=== PATIENT | male | born 1960 | race Caucasian/White ===

== ENCOUNTER → 2017-11-30 01:14 | Outpatient (CLI) | payer OTHER, SELFPAY ==
[2017-12-04 17:29] LABS: CLASS 0; Cheese American IgE <0.35 kU/L (<0.35)
[2017-12-06 14:59] LABS: Food Panel #2, IgE <0.35 kU/L; Pineapple, IgE <0.35 kU/L; Tuna IgE <0.35 kU/L
== END ==
PROVIDERS: PCP Nurse Practitioner Family; Visit Provider Physician Assistant
DX: J31.0 Chronic rhinitis (principal); L30.9 Dermatitis, unspecified; R09.82 Postnasal drip
CPT/HCPCS: 36415; 86003; 84443

== ENCOUNTER 2018-09-23 06:36 | Emergency (ER) | payer OTHER, SELFPAY ==
[2018-09-23] VITALS (18 sets, daily range): BP systolic 119–138; BP diastolic 71–89; PULSE 53–79; RESP 20; TEMP 36.7; O2SAT 94–96
--- NOTE | 2018-09-23 06:45 | W.ED.GENAD ---
Discharge Plan Disposition Patient Disposition: HOME Condition: Improving Discharge Details Chief Complaint: Allergic Clinical Impression: Allergic reaction Primary Care Provider: Alisha Mallory ED Provider: Armin Howe Home Meds and New Rx's Prescriptions: New prednisone 20 mg tablet 40 mg PO DAILY 3 Days Qty: 6 RF: 0 Continued fexofenadine [Cristina Allergy] 180 mg Tablet 360 mg PO BID RF: 0 ranitidine HCl [Zantac] 150 mg Tablet 150 mg PO BID RF: 0 Discharge Instructions Instructions: General Allergic Reaction (ED) Additional Instructions: Continue your regular medications including Cristina and Zantac. Prednisone as prescribed for 3 days time. Return for any acute concerns Medical Decision Making 58-year-old male with a history of food allergies, states that after eating some fruit he began to develop uvular swelling and sensation of mild difficulty swallowing. He does take antihistamines daily but had not taken them today. He has not had a rash or shortness of breath. He arrives with unremarkable vital signs and a mild to moderately edematous uvula. IV placed, patient given parenteral steroids, ranitidine, Benadryl and small fluid bolus. Observed with improvement. Likely secondary to food allergen. Will place on 3 days low dose prednisone to prevent recrudescence of symptoms. HPI General Mode of arrival: EMS. Date/Time Provider Initiated Documentation: 09/23/18 06:40. Limitations to Documentation: no limitations. Information obtained by: EMS. History of Present Illness 58 year old M presents to the emergency department with the chief complaint of Allergic reaction, described as moderate and similar to prior episodes, Quality is described as constant, and is localized to the mouth. Patient reports no radiation. Patient started experiencing this minute(s) and it has been constant. No relieving factors improve symptom(s), No exacerbating factors reported . Patient notes denies shortness of breath. Patient did receive the following treatments prior to arrival, none Related Data Home Medications Medication Instructions Recorded Confirmed fexofenadine [Cristina Allergy] 360 mg PO BID 09/23/18 09/23/18 prednisone 40 mg PO DAILY 3 Days #6 tab 09/23/18 ranitidine HCl [Zantac] 150 mg PO BID 09/23/18 09/23/18 Previous Rx's Medication Instructions Recorded prednisone 40 mg PO DAILY 3 Days #6 tab 09/23/18 Allergies Allergy/AdvReac Type Severity Reaction Status Date / Time fresh fruit Allergy Severe Swelling/Ed Uncoded 09/23/18 06:48 reji Review of Systems Review of Systems No difficulty breathing, no change to swallowing, no drooling. 6 systems reviewed and otherwise negative [facility] Social History Smoking/Tobacco Use Status: Never Alcohol Intake: current Substance use type: does not use Do you feel safe at home: Yes Do you feel safe in your relationship?: Yes Exam Narrative Exam Narrative: GEN: awake, alert, oriented 3. Pleasant, well groomed, interactive. HEAD: Normocephalic, atraumatic ENT: Mucous membranes moist, oropharynx with swollen and edematous midline uvula., External ear exam unremarkable EYES: PERRL, EOMI NECK: Full ROM, no SHARONDA, no menigismus CHEST/RESP: Nontender, clear to auscultation bilateral, no wheeze/rhonchi/rales CARDIOVASCULAR: RRR, no murmur, rub jax. 2+ Rad pulse bilateral ABDOMEN: Soft, nontender, no mass. +Bowel sounds EXT: Full ROM, no edema, no rash Neuro: Grossly normal neurologic exam, conversant, interactive. Psych: Speech fluent, thoughts congruent, affect normal
--- NOTE | 2018-09-23 06:48 | ED.GENADUL_ITS ---
Discharge Plan Disposition Patient Disposition: HOME Condition: Improving Discharge Details Chief Complaint: Allergic Clinical Impression: Allergic reaction Primary Care Provider: Alisha Mallory ED Provider: Armin Howe Home Meds and New Rx's Prescriptions: New prednisone 20 mg tablet 40 mg PO DAILY 3 Days Qty: 6 RF: 0 Continued fexofenadine [Cristina Allergy] 180 mg Tablet 360 mg PO BID RF: 0 ranitidine HCl [Zantac] 150 mg Tablet 150 mg PO BID RF: 0 Discharge Instructions Instructions: General Allergic Reaction (ED) Additional Instructions: Continue your regular medications including Cristina and Zantac. Prednisone as prescribed for 3 days time. Return for any acute concerns Medical Decision Making 58-year-old male with a history of food allergies, states that after eating some fruit he began to develop uvular swelling and sensation of mild difficulty swallowing. He does take antihistamines daily but had not taken them today. He has not had a rash or shortness of breath. He arrives with unremarkable vital signs and a mild to moderately edematous uvula. IV placed, patient given parenteral steroids, ranitidine, Benadryl and small fluid bolus. Observed with improvement. Likely secondary to food allergen. Will place on 3 days low dose prednisone to prevent recrudescence of symptoms. HPI General Mode of arrival: EMS . Date/Time Provider Initiated Documentation: 09/23/18 06:40 . Limitations to Documentation: no limitations . Information obtained by: EMS . History of Present Illness 58 year old M presents to the emergency department with the chief complaint of Allergic reaction, described as moderate and similar to prior episodes, Quality is described as constant, and is localized to the mouth. Patient reports no radiation. Patient started experiencing this minute(s) and it has been constant. No relieving factors improve symptom(s), No exacerbating factors reported . Patient notes denies shortness of breath. Patient did receive the following treatments prior to arrival, none Related Data Home Medications Medication Instructions Recorded Confirmed fexofenadine [Cristina Allergy] 360 mg PO BID 09/23/18 09/23/18 prednisone 40 mg PO DAILY 3 Days #6 tab 09/23/18 ranitidine HCl [Zantac] 150 mg PO BID 09/23/18 09/23/18 Previous Rx's Medication Instructions Recorded prednisone 40 mg PO DAILY 3 Days #6 tab 09/23/18 Allergies Allergy/AdvReac Type Severity Reaction Status Date / Time fresh fruit Allergy Severe Swelling/Ed Uncoded 09/23/18 06:48 reji Review of Systems Review of Systems No difficulty breathing, no change to swallowing, no drooling. 6 systems reviewed and otherwise negative [facility] Social History Smoking/Tobacco Use Status: Never Alcohol Intake: current Substance use type: does not use Do you feel safe at home: Yes Do you feel safe in your relationship?: Yes Exam Narrative Exam Narrative: GEN: awake, alert, oriented 3. Pleasant, well groomed, interactive. HEAD: Normocephalic, atraumatic ENT: Mucous membranes moist, oropharynx with swollen and edematous midline uvula., External ear exam unremarkable EYES: PERRL, EOMI NECK: Full ROM, no SHARONDA, no menigismus CHEST/RESP: Nontender, clear to auscultation bilateral, no wheeze/rhonchi/rales CARDIOVASCULAR: RRR, no murmur, rub jax. 2+ Rad pulse bilateral ABDOMEN: Soft, nontender, no mass. +Bowel sounds EXT: Full ROM, no edema, no rash Neuro: Grossly normal neurologic exam, conversant, interactive. Psych: Speech fluent, thoughts congruent, affect normal
[2018-09-23] MEDS: methylPREDNISolone SUCC 125 MG VIAL IVP (07:10)
[2018-09-23] MEDS: diphenhydrAMINE 50 MG/ML VIAL IVP (07:15)
[2018-09-23] MEDS: Normal Saline 50 ML 200 ML (07:18)
[2018-09-23] MEDS: Normal Saline 500 ML IV (07:23)
== END 2018-09-23 09:20 | disposition home or self-care (01) ==
PROVIDERS: Emergency Provider Emergency Medicine; PCP Family Medicine
DX: R13.10 Dysphagia, unspecified (principal); T62.8X1A Toxic effect of other specified noxious substances eaten as food, accidental (unintentional), initial encounter; R60.0 Localized edema; Z91.018 Allergy to other foods
CPT/HCPCS: 36415; 96361; 96374; 96375; 99284; J1200; J2930

== ENCOUNTER 2020-01-31 04:22 | Outpatient (CLI) | payer BC, SELFPAY ==
[2020-02-01 20:39] LABS: COVID-19 RT-PCR Result NEGATIVE (Negative)
== END 2020-01-31 04:42 ==
PROVIDERS: PCP Family Medicine; Visit Provider Family Medicine
DX: Z20.828 Contact with and (suspected) exposure to other viral communicable diseases (principal)
CPT/HCPCS: U0003

== ENCOUNTER 2020-04-14 00:51 | Outpatient (CLI) | payer BC, SELFPAY ==
--- NOTE | 2020-04-14 08:21 | DI.RAD_ITS ---
EXAM: XR FOOT RT COMPLETE CLINICAL HISTORY: JAMES STAPLES BUNION OF FEET, M21.621. TECHNIQUE: 2D digital imaging was performed. COMPARISON: CR XR FOOT LT COMPLETE from 04/14/2020 FINDINGS: BONES: No acute fracture is present. No bony destructive lesion is seen. The 5th metatarsal head has slightly shifted outward. There may be mild increased soft tissue lateral to the head of the 5th me tatarsal. JOINTS: No dislocation is present. Mild degenerative changes are seen in the foot particularly at th e 1st MTP joint. SOFT TISSUE: Please see above. IMPRESSION: Slight outward shift of the 5th metatarsal head. Mild increase in the overlying soft tissues. DATA REPOSITORY: RADIATION DOSE DELIVERED:
--- NOTE | 2020-04-14 08:21 | DI.RAD_ITS ---
EXAM: XR FOOT LT COMPLETE CLINICAL HISTORY: JAMES STAPLES BUNION OF FEET, M21.621. TECHNIQUE: 2D digital imaging was performed. COMPARISON: No exams were available for comparison FINDINGS: BONES: No acute fracture is present. No bony destructive lesion is seen. No significant osseous hyper trophy of the 5th metatarsal is noted. JOINTS: No dislocation present. The joint spaces are well maintained. SOFT TISSUE: There might be mild soft tissue thickening along the lateral aspect of the foot at the 5 th MTP joint. IMPRESSION: Possible mild soft tissue thickening along the lateral aspect of the foot at the 5th MTP joint. DATA REPOSITORY: RADIATION DOSE DELIVERED:
== END 2020-04-14 01:11 ==
PROVIDERS: PCP Family Medicine; Visit Provider Podiatrist Foot Surgery
DX: M79.89 Other specified soft tissue disorders (principal); M21.621 Bunionette of right foot; M21.622 Bunionette of left foot
CPT/HCPCS: 73630

== ENCOUNTER 2020-06-01 01:43 | Outpatient (CLI) | payer BC, SELFPAY ==
--- NOTE | 2020-06-01 06:30 | DI.US_ITS ---
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 TECHNIQUE: Ultrasound was performed using standard protocol. COMPARISON: No exams were available for comparison FINDINGS: Sonographic assessment utilizing grayscale and color Doppler imaging was performed and targeted to th e area of clinical concern. There is a question of a small fat containing right inguinal hernia. The neck of the hernia measures approximately [address] scan of the pelvis may be considered for further evaluation. IMPRESSION: DATA REPOSITORY:
== END 2020-06-01 02:03 ==
PROVIDERS: PCP Family Medicine; Visit Provider Surgery
DX: R10.31 Right lower quadrant pain (principal)
CPT/HCPCS: 76857

== ENCOUNTER 2020-06-25 12:59 | Emergency (ER) | payer BC, SELFPAY ==
[2020-06-25] VITALS (7 sets, daily range): BP systolic 118–145; BP diastolic 74–89; PULSE 58–70; RESP 14–18; TEMP 36.2–36.6; O2SAT 95–97
--- NOTE | 2020-06-25 13:30 | DI.US_ITS ---
EXAM: US SCROTUM CLINICAL HISTORY: scrotal pain TECHNIQUE: Ultrasound of the testes performed using grayscale, color, and Doppler imaging. COMPARISON: US US HERNIA from 06/01/2020 FINDINGS: RIGHT HEMISCROTUM: The right testicle exhibits normal size and echo architecture with no evidence of intratesticular mas s. Vascular flow was demonstrated within the right testicle, including arterial waveforms. Single tiny calcification noted in the right testicle measuring 1 millimeter. The epididymis appears unremarkable. There are no epididymal head cysts. There is small ipsilateral hydrocele. LEFT HEMISCROTUM: The left testicle exhibits normal size and echo architecture with no evidence of intratesticular mass . Vascular flow is demonstrated within the left testicle, including arterial waveforms. Small left-sided hydrocele. The epididymis appears unremarkable. There are no epididymal head cysts. Small varicocele noted. Also 2 adjacent 2 millimeter calcification which are x-rays testicular and a lso appendix epididymis noted. IMPRESSION: 1. No evidence of testicular mass nor testicular torsion. 2. Small bilateral hydroceles 3. Left-sided varicocele (small-moderate) Other findings as above. DATA REPOSITORY:
--- NOTE | 2020-06-25 13:37 | W.ED.GENAD ---
Discharge Plan Disposition Patient Disposition: HOME Condition: Good Discharge Details Clinical Impression: Right groin pain Primary Care Provider: Alisha Mallory ED Provider: Rohini Mauro Home Meds and New Rx's Prescriptions: No Action triamcinolone acetonide 0.1 % cream 1 applic topical BID RF: 0 fluticasone propionate 50 mcg/actuation spray,suspension 2 spray intranasal DAILY RF: 0 betamethasone dipropionate 0.05 % ointment 1 applic topical BID RF: 0 aspirin [Adult Aspirin Regimen] 81 mg tablet,delayed release (DR/EC) 81 mg PO DAILY RF: 0 lorazepam 1 mg tablet 1 mg PO QHS PRNRF: 0 zolpidem [Ambien] 10 mg tablet 10 mg PO QHS PRNRF: 0 olopatadine 0.1 % drops 1 drp ophthalmic (eye) BID RF: 0 epinephrine [EpiPen] 0.3 mg/0.3 mL auto-injector 0.3 mg IM ONCE RF: 0 oxycodone 5 mg tablet 5 mg PO Q6H PRNQty: 14 RF: 0 Discharge Instructions Additional Instructions: Take ibuprofen 600 mg. Take Tylenol 650 mg every 4-6 hours as needed breakthrough pain No lifting more than 10 pounds Follow-up with surgeon at your scheduled appointment and return earlier should you have new or worsening complaints including a hernia that not reproducible, fever, chills Try not to strain with bowel movement Discharge Data Discharge Date/Time-TO BE ENTERED AT DEPARTURE: 06/25/20 18:55 Medical Decision Making <Ricardo Esposito MD - Last Filed: 07/03/20 20:44> 1600??59-year-old male with history of right inguinal hernia, scheduled for inguinal hernia repair next week, here with worsening testicular pain over the past 4-5 days, tender testicles right greater than left with no inflammatory changes, no palpable hernia. Ultrasound of the scrotum was obtained and interpreted by radiology: Good blood flow, no torsion. See report regarding additional findings. Plan to obtain CT of the abdomen pelvis to assess for incarcerated hernia. Imaging Data Radiologic Study: Imaging: Ultrasound (Scrotum) Radiologist's impression: FINDINGS: RIGHT HEMISCROTUM: The right testicle exhibits normal size and echo architecture with no evidence of intratesticular mass. Vascular flow was demonstrated within the right testicle, including arterial waveforms. Single tiny calcification noted in the right testicle measuring 1 millimeter. The epididymis appears unremarkable. There are no epididymal head cysts. There is small ipsilateral hydrocele. LEFT HEMISCROTUM: The left testicle exhibits normal size and echo architecture with no evidence of intratesticular mass. Vascular flow is demonstrated within the left testicle, including arterial waveforms. Small left-sided hydrocele. The epididymis appears unremarkable. There are no epididymal head cysts. Small varicocele noted. Also 2 adjacent 2 millimeter calcification which are x-rays testicular and also appendix epididymis noted. IMPRESSION: 1. No evidence of testicular mass nor testicular torsion. 2. Small bilateral hydroceles 3. Left-sided varicocele (small-moderate) Lab Data Lab results reviewed: Yes I reviewed the patient's lab results. Labs: Laboratory Tests Range/Units 06/25/20 06/25/20 06/25/20 14:15 14:15 14:28 WBC (4.4-10.8) 10^3/uL 6.00 RBC (4.36-5.78) 10^6/uL 4.59 Hgb (13.5-17.5) g/dL 14.4 Hct (40.0-50.0) % 43.6 MCV (80-95) fL 95.0 MCH (27.0-33.0) pg 31.4 MCHC (32.0-36.0) % 33.0 RDW (11.8-14.1) % 13.2 Plt Count (130-400) 10^3/uL 226 MPV (8.0-11.0) fL 11.2 H Immature Gran % 1.2 Neutrophils % 62.2 Lymphocytes % 20.3 Monocytes % 9.3 Eosinophils % 6.2 Basophils % 0.8 Nucleated RBC % % 0 Absolute Neutrophils (1.2-6.7) 10^3/uL 3.73 Absolute Lymphocytes (1.2-3.4) 10^3/uL 1.22 Absolute Monocytes (0.1-0.8) 10^3/uL 0.56 Absolute Eosinophils (0.0-0.7) 10^3/uL 0.37 Absolute Basophils (0.0-0.2) 10^3/uL 0.05 Sodium (136-145) mmol/L 138 Potassium (3.5-5.1) mmol/L 4.2 Chloride (98-107) mmol/L 105 Carbon Dioxide (21.0-32.0) mmol/L 27.4 Anion Gap (3-11) mmol/L 5.6 BUN (7-18) mg/dL 16 Creatinine (0.70-1.30) mg/dL 0.9 Estimated GFR/1.73 m2 (mL/min/1.73m2) >= 60.00 Glucose (74-106) mg/dL 95 Calcium (8.5-10.1) mg/dL 8.7 Total Bilirubin (0.2-1.0) mg/dL 0.3 AST (15-37) U/L 24 ALT (16-63) U/L 41 Alkaline Phosphatase (46-116) U/L 86 Total Protein (6.4-8.2) g/dL 6.9 Albumin (3.4-5.0) g/dL 3.7 Lipase (73-393) U/L 164 Urine Color (Yellow) Yellow Urine Clarity (Clear) Clear Urine pH (5-8) 6.0 Ur Specific [place] (1.005-1.025) 1.025 Urine Protein (Negative) mg/dL Negative Urine Ketones (Negative) mg/dL Negative Urine Blood (Negative) Negative Urine Nitrite (Negative) Negative Urine Bilirubin (Negative) Negative Urine Urobilinogen (Up TO 0.2) EU/dL 0.2 Ur Leukocyte Esterase (Negative) Negative Urine Glucose (Negative) mg/dL Negative <HERMILA Moscoso - Last Filed: 06/25/20 18:41> CT results reviewed with patient, possible evidence of gastroenteritis, however pt does not have any tenderness in his epigastrium, plan is for him to follow-up with surgery as directed and to take ibuprofen and Tylenol for discomfort Early return precautions discussed and patient expressed understanding, discussed to restrain from heavy lifting, repetitive motion Discharged home in stable condition with stable vital HPI <Ricardo Esposito MD - Last Filed: 07/03/20 20:44> General Mode of arrival: ambulatory. Date/Time Provider Initiated Documentation: 06/25/20 13:30. Limitations to Documentation: no limitations. Information obtained by: patient. HPI Narrative: 59-year-old male with history of adenomatous polyp of the colon, right inguinal hernia repair in the past, here with complaint of testicular pain. Patient notes testicular pain persistent and severe over the past few days. Pain currently moderate. No modifiers. No associated dysuria or fever. He has not noticed any scrotal swelling. He has known inguinal hernia and is scheduled for repair next week. Patient called surgical office and advised him come to the emerge department for likely ultrasound and assessment. Related Data Home Medications Medication Instructions Recorded Confirmed aspirin 81 mg tablet,delayed 81 mg PO DAILY 05/14/20 07/01/20 release betamethasone dipropionate 0.05 % 1 applic TOPICAL BID 05/14/20 07/01/20 topical ointment epinephrine 0.3 mg/0.3 mL 0.3 mg IM ONCE 05/14/20 06/30/20 injection, auto-injector fluticasone propionate 50 2 spray INTRANASAL DAILY 05/14/20 07/01/20 mcg/actuation nasal spray,suspension lorazepam 1 mg tablet 1 mg PO QHS PRN 05/14/20 07/01/20 olopatadine 0.1 % eye drops 1 drp OPHTHALMIC (EYE) BID 05/14/20 07/01/20 triamcinolone acetonide 0.1 % 1 applic TOPICAL BID 05/14/20 07/01/20 topical cream zolpidem 10 mg tablet 10 mg PO QHS PRN 05/14/20 07/01/20 oxycodone 5 mg PO Q6H PRN #14 tab 07/01/20 Previous Rx's Medication Instructions Recorded oxycodone 5 mg PO Q6H PRN #14 tab 07/01/20 Allergies Allergy/AdvReac Type Severity Reaction Status Date / Time hydromorphone [From Dilaudid] AdvReac Intermediate Nausea Unverified 07/01/20 08:46 fresh fruit Allergy Severe Swelling/Ed Uncoded 07/01/20 08:46 reji General Stated Complaint: Abd Prob PRAFUL: 3 Review of Systems <Ricardo Esposito MD - Last Filed: 07/03/20 20:44> All systems reviewed & are unremarkable except as noted in HPI and below Constitutional Constitutional: Denies fever(s) Genitourinary Genitourinary: Reports as per HPI PFSH <Ricardo Esposito MD - Last Filed: 07/03/20 20:44> Medical History Anxiety Dermatographic urticaria History of adenomatous polyp of colon Insomnia Sleep apnea Surgical History (Updated 07/01/20 @ 08:45 by Karla Turner RN) History of repair of ACL R knee Hx of right inguinal hernia repair Hx of shoulder surgery L shoulder S/P colonoscopy S/P right knee arthroscopy L knee Social History Smoking/Tobacco Use Status: Never Smoking risk assessment performed?: Yes Alcohol Intake: never Drug use: Never Substance use type: does not use Current gender identity: male Do you feel safe at home: Yes Do you feel safe in your relationship?: Yes Exam <Ricardo Esposito MD - Last Filed: 07/03/20 20:44> Const General: cooperative and no acute distress HENMT Mouth: moist mucous membranes Eyes Conjunctivae: normal conjunctivae Sclera: normal sclerae Resp Auscultation: clear to auscultation bilaterally, no rales, no rhonchi and no wheezes Cardio Rate: regular rate and not tachycardic Rhythm: regular rhythm GI Palpation: soft, not firm, no guarding, no masses and not rigid Male General Exam: No erythema, No hernia, No inguinal lymphadenopathy and Yes tenderness (Right greater than left testicle) Penis: normal penis Meatus: meatus normal Scrotum: not erythematous, no inguinal hernias and no scrotal swelling Other: Recommended medical officer psychiatry and patient declined Skin General skin exam: no rashes or lesions noted Neuro General: patient alert, patient awake and tone normal Extrem General: no edema Psych Appearance: grossly normal Mental Status: mental status grossly normal Course <Ricardo Esposito MD - Last Filed: 07/03/20 20:44> Vital Signs Vital signs: Vital Signs Temperature 36.3 C L 06/25/20 13:21 Pulse 70 06/25/20 13:21 Respiratory Rate 16 06/25/20 13:21 Blood Pressure 145/81 H 06/25/20 13:21 Pulse Oximetry 95 06/25/20 13:21 Temperature 36.3 C L 06/25/20 13:21 Temperature Source Skin 06/25/20 13:21 Pulse 70 06/25/20 13:21 Respiratory Rate 16 06/25/20 13:21 Blood Pressure 145/81 H 06/25/20 13:21 Blood Pressure Position Sitting 06/25/20 13:21 Pulse Oximetry 95 06/25/20 13:21 Oxygen Delivery Method Room Air 06/25/20 13:21 Oxygen Flow Rate 0 06/25/20 13:21 Pain Level 5 06/25/20 13:21 Comment 06/25/20 13:21 Sign Out <Ricardo Esposito MD - Last Filed: 07/03/20 20:44> Sign Out Data: Sign Out Comment: Follow-up CT of the abdomen pelvis result, if significant finding discussed with general surgery, reassess patient for disposition. Last updated by Ricardo Esposito MD at 06/25/20 17:32
[2020-06-25 14:36] LABS: Abs Immature Grans 0.07 10^3/uL (0.0-0.06); Absolute Basophil Count 0.05 10^3/uL (0.0-0.2); Absolute Eosinophil Count 0.37 10^3/uL (0.0-0.7); Absolute Lymphocyte Count 1.22 10^3/uL (1.2-3.4); Absolute Monocyte Count 0.56 10^3/uL (0.1-0.8); Absolute Neutrophil Count 3.73 10^3/uL (1.2-6.7); Basophils % 0.8; Eosinophils % 6.2; HCT 43.6 % (40.0-50.0); HGB 14.4 g/dL (13.5-17.5); Immature Grans % 1.2; Lymphocytes % 20.3; MCH 31.4 pg (27.0-33.0); MPV 11.2 fL (8.0-11.0); Monocytes % 9.3; Neutrophils % 62.2; Nucleated RBC 0 %; Platelet Count 226 10^3/uL (130-400); RBC 4.59 10^6/uL (4.36-5.78); RDW 13.2 % (11.8-14.1); RDW-SD 46.4 fL
[2020-06-25 14:40] LABS: Bilirubin Negative (Negative); Blood Negative (Negative); Clarity Clear (Clear); Glucose Negative (Negative); Ketones Negative (Negative); Leukocyte Esterase Negative (Negative); Nitrite Negative (Negative); Specific Gravity 1.025 (1.005-1.025); Urobilinogen 0.2 EU/dL (Up TO 0.2)
[2020-06-25 14:49] LABS: ALT 41 U/L (16-63); AST 24 U/L (15-37); Albumin 3.7 g/dL (3.4-5.0); Alkaline Phosphatase 86 U/L (46-116); Anion Gap 5.6 mmol/L (3-11); BUN 16 mg/dL (7-18); Bilirubin, Total 0.3 mg/dL (0.2-1.0); CO2 27.4 mmol/L (21.0-32.0); CREATININE 0.9 mg/dL (0.70-1.30); Calcium 8.7 mg/dL (8.5-10.1); Chloride 105 mmol/L (98-107); Glucose 95 mg/dL (74-106); Lipase 164 U/L (73-393); Potassium 4.2 mmol/L (3.5-5.1); Sodium 138 mmol/L (136-145); Total Protein 6.9 g/dL (6.4-8.2)
[2020-06-25] MEDS: Normal Saline 1,000 ML 125 ML IV (15:28)
--- NOTE | 2020-06-25 15:30 | DI.CT_ITS ---
EXAM: CT ABDOMEN PELVIS W CLINICAL HISTORY: rt testicular and inguinal pain, known hernia. TECHNIQUE: Imaging Protocol: Axial computed tomography images with coronal and sagittal reformatted images were created and reviewed CONTRAST MATERIAL: Intravenous: Omnipaque 350 Contrast volume:100 ml Oral: / no COMPARISON: US US HERNIA from 06/01/2020 US US HERNIA from 06/01/2020 FINDINGS: ABDOMEN: Lung Bases: Normal where visualized. Liver: Normal density. No measurable mass. Gallbladder and biliary tract: No radiodense calculus or dilation. Pancreas: Normal density, no abnormal calcifications or inflammatory process. Spleen: Normal. Kidneys: Normal size, contour and axis. No radiodense stones or obstructive uropathy. No masses seen. Adrenal glands: No masses seen. Abdominal Aorta: Abdominal portion non-dilated. PELVIS: Bladder: Symmetric distention, no gross wall thickening. Bowel: Limited evaluation due to lack of oral contrast. Mild sigmoid diverticulosis. Moderate quant ity of stool. Small hiatal hernia no obstruction or bowel wall thickening. Peritoneal cavity: No ascites, collection or mesenteric inflammatory response. Bones: Degenerative disc changes and facet degenerative changes. L5 spondylolysis and grade 1 spondy lolisthesis. Reproductive organs: Within normal limits. Lymph nodes: Unremarkable. Soft tissues: No inguinal hernia or other lower abdominal wall hernia is demonstrated. There is a ti ny amount of fat at the umbilicus. Impression: No evidence inguinal hernia or other acute abnormality in the abdomen or pelvis. RADIATION DOSE DELIVERED: 939.87mGy.cm Total DLP DATA REPOSITORY: All CT scans at this facility are submitted to the National Radiology Data Registry (NRDR) Dose Index Registry (DIR) with the [employer] ([employer]). RADIATION OPTIMIZATION: All CT scans at this facility use at least one of these dose optimization te chniques: automated exposure control; mA and/or kV adjustment per patient size (includes targeted exa ms where dose is matched to clinical indication); or iterative reconstruction.
[2020-06-25] MEDS: Normal Saline Flush 10 ML SYR IVP (15:33)
[2020-06-25] MEDS: HYDROmorphone 2 MG/ML VIAL 1 MG IVP (16:16)
[2020-06-25] MEDS: Ondansetron 4 MG/2 ML VIAL (17:09)
[2020-06-25] MEDS: Omnipaque 350 MG/ML 100 ML BTL IJ (17:47)
[2020-06-25] MEDS: Normal Saline - Diluent 50 ML VIAL IV (17:47)
--- NOTE | 2020-06-25 18:13 | DI.VRAD_ITS ---
PROCEDURE INFORMATION: Exam: CT Abdomen And Pelvis With Contrast Exam date and time: 06/25/2020 5:35 PM Age: 59 years old Clinical indication: Nausea and vomiting; Abdominal pain TECHNIQUE: Imaging protocol: Computed tomography of the abdomen and pelvis with contrast. COMPARISON: No relevant prior studies available. FINDINGS: Mediastinal space: There is a small hiatal hernia. Liver: Normal. No mass. Gallbladder and bile ducts: Normal. No calcified stones. No ductal dilation. Pancreas: Normal. No ductal dilation. Spleen: Normal. No splenomegaly. Adrenal glands: Normal. No mass. Kidneys and ureters: Normal. No hydronephrosis. Stomach and bowel: There may be some mild gastric antral wall thickening allowing for the degree of gastric distention. No evidence for ulcer. Minimal fecal retention pattern. No abnormal small bowel distention. Appendix: No evidence of appendicitis. Intraperitoneal space: Unremarkable. No free air. No significant fluid collection. Vasculature: Unremarkable. No abdominal aortic aneurysm. Lymph nodes: Unremarkable. No enlarged lymph nodes. Urinary bladder: Unremarkable as visualized. Reproductive: Unremarkable as visualized. Bones/joints: Unremarkable. No acute fracture. Soft tissues: See Stomach and bowel finding. IMPRESSION: Possible gastric antritis. Dictated and Authenticated by: Jennifer Snider MD. Ordering:TIMOTEO Silva MD
== END 2020-06-25 18:55 | disposition home or self-care (01) ==
PROVIDERS: Student in an Organized Health Care Education/Training Program; Emergency Provider Physician Assistant; PCP Family Medicine
DX: R10.31 Right lower quadrant pain (principal); K40.91 Unilateral inguinal hernia, without obstruction or gangrene, recurrent
CPT/HCPCS: 80053; 83690; 96374; 99285; 74177; 76870; 81003; 85025; 99284; J2405; J3490

== ENCOUNTER 2020-07-01 08:30 | Day surgery (SDC) | payer BC, SELFPAY ==
[2020-07-01] VITALS (7 sets, daily range): BP systolic 110–147; BP diastolic 75–83; PULSE 54–66; RESP 11–20; TEMP 36–36.6; O2SAT 95–99
--- NOTE | 2020-07-01 06:55 | W.PM.OP ---
Date of service: 07/01/20 Time of Service: 10:42 Operative Note Operative Note DATE OF PROCEDURE: 07/01/20 PRE-OP DIAGNOSIS: Recurrent Right inguinal hernia POST-OP DIAGNOSIS: same PROCEDURE: Right inguinal hernia repair with mesh SURGEON: Karen Dillon [employer]ING CUTTING MACHINE OPERATOR: Georgina Sauceda ANESTHESIA TYPE: Local By Surgeon, General LMA/ETT (ASA / ) and Primary Nerve Block Refer to Anesthesia Record PATHOLOGY: none sent COMPLICATIONS: None Patient was transported to: PACU Patient's condition: stable Implants: [employer] Mesh Indications: Mr. Villa is a 59-year old gentleman with a small recurrent right inguinal hernia. He has had some increase in discomfort in that area. I am still unable to feel it. Risks benefits and complications of the procedure were reviewed with him. Risks, benefits and complications have been reviewed. Complications include but are not limited to bleeding, infection, injury to vas, vessels and nerves, injury to bowel and adverse reaction to medications. Questions were entertained and answered to their satisfaction and they wished to proceed. COVID-19 testing explained to the patient. Reason for test reviewed. Quarantine per state requirements reviewed with patient. Patient understands and agrees to testing. Proceed with right inguinal hernia repair with mesh Findings: A lot of scar tissue from his previous repair. No mesh was encountered He had an indirect and a direct defect. Procedure Description: After informed consent was obtained the patient was taken to the operating room and placed in a supine position. Monitors and SCDs were applied and a timeout was done. The patient's name, date of , procedure type, procedure site, allergies to medications, preoperative antibiotic, and DVT prophylaxis were all reviewed. Fire risk was assessed. Next anesthesia did a tap block on the right side under ultrasound guidance. Please see their separate dictation. Once anesthesia was done the right lower quadrant was clipped of hair and was prepped and draped in a sterile surgical fashion. 1% lidocaine was injected into the dermis along his old scar in the right lower quadrant. An incision was made with a 10 blade along part of his old scar. Dissection was done with cautery through the subcutaneous tissues and Abraham's fascia down to the external oblique fascia. The external ring was identified and the external oblique fascia was opened sharply through the external ring. The cut fascia was grasped with hemostats. There was a lot of scar tissue noted between the cremasteric muscle and the fascia. The scar tissue was gently dissected away from the cremasteric muscle. The cord structures were identified and a [place] drain was placed around them. The cremasteric muscle was dissected away from the cord structures using both cautery and blunt dissection. Once the cord structures were skeletonized a small indirect hernia defect was identified. There was also a direct defeect. The femoral artery and vein were identified. A 6 x 6 piece of mesh was then cut in half. One half was then cut into thirds. A plug was created. The plug was placed into the indirect defect and secured with 2-0 proline. The other half was cut to size and attached to the lacunar ligament using a 2-0 Prolene double armed suture. The mesh was secured laterally and medially with a 2-0 Prolene, with a running suture. The tails of the mesh were wrapped around the cord structures effectively cinching down the internal ring. Once the mesh was secured the tissues were irrigated with some normal saline. Some venous bleeding was identified. The bleeding was stopped with cautery. The area was irrigated. Some more oozing was coming from under the mesh. Floseal was placed over the mesh. The external oblique fascia was re-approximated using 2-0 Vicryl running suture. The Abraham's fascia was re-approximated using interrupted 3-0 Vicryl. The dermis was re-approximated with a running 4-0 Vicryl. The skin was cleaned and dried and skin affix was applied. The patient was woken up and taken back to recovery in stable condition. There were no immediate complications. Sponge, instrument and needle counts were correct at the end of the case x2.
--- NOTE | 2020-07-01 06:57 | PDOC.DSDIS_ITS ---
Discharge Plan Disposition Patient Disposition: HOME Condition: Good Discharge Details Reason For Visit: Right inguinal hernia Attending Provider: Karen Dillon Primary Care Provider: Alisha Mallory Home Meds and New Rx's Prescriptions: Continued triamcinolone acetonide 0.1 % cream 1 applic topical BID RF: 0 fluticasone propionate 50 mcg/actuation spray,suspension 2 spray intranasal DAILY RF: 0 betamethasone dipropionate 0.05 % ointment 1 applic topical BID RF: 0 aspirin [Adult Aspirin Regimen] 81 mg tablet,delayed release (DR/EC) 81 mg PO DAILY RF: 0 lorazepam 1 mg tablet 1 mg PO QHS PRNRF: 0 zolpidem [Ambien] 10 mg tablet 10 mg PO QHS PRNRF: 0 olopatadine 0.1 % drops 1 drp ophthalmic (eye) BID RF: 0 epinephrine [EpiPen] 0.3 mg/0.3 mL auto-injector 0.3 mg IM ONCE RF: 0 Discharge Instructions Instructions: Open Herniorrhaphy (DC) Additional Instructions: Activity at Home after surgery: 1. Make sure you walk outside at least 4 times per day 2. You should be able to climb a flight of stairs 3. No driving while in pain or taking pain medications 4. No strenuous activity or heavy lifting for 2 weeks (laparoscopic surgery) or 4 weeks (open surgery) Diet, Nutrition, & wound healin. Avoid alcohol until after you are recovered from your surgery 2. Make sure to eat plenty of lean protein (meat, fish, eggs, cottage cheese, beans) 3. Eat a variety of fruits and vegetables. Eat plenty of high fiber foods to avoid constipation. 4. Drink plenty of liquids to stay hydrated and avoid constipation Pain Medications: 1. Tylenol 650mg every 6 hours as needed and Ibuprofen 600 mg every 6 hours as needed. You may alternate between the 2 medications every 3 hours 2. If a narcotic has been prescribed take as directed only for breakthrough pain For Constipation: 1. Take Milk of Magnesia or MiraLax as needed for constipation Other: 1. You may shower daily. Do not scrub the incisions 2. Do not soak the incisions for 1 week 3. You may alternate ice and heat as needed for pain and swelling Wound Care: 1. Keep the incisions clean and dry Please call our office if you develop: 1. Fevers >101.5 2. Nausea or Vomiting 3. Worsening pain 4. Redness and thick discharge from the wounds If after hours please call the Hospital at and ask to speak to the on-call surgeon Referrals: Karen Dillon MD [ [facility] STAFF PHYSICIAN] - 07/14/20 10:30 am Activity:: No lifting >20 lb x 4 weeks Shower/Bathe:: 24 hours Diet:: As Tolerated Discharge Orders Discharge Orders: Discharge Order (Routine); Ordered 07/01/20 Ordered By: Karen Dillon
[2020-07-01] MEDS: Celecoxib 200 MG CAP PO (08:59)
[2020-07-01] MEDS: Acetaminophen 500 MG TAB 1000 MG PO (09:00)
[2020-07-01] MEDS: Lactated Ringers 1,000 ML 80 ML IV (09:10)
[2020-07-01] MEDS: ceFAZolin 2 GM/50 ML BAG IVPB (09:19)
[2020-07-01] MEDS: Bupivacaine LIPOSOME/PF 133 MG/10 ML VIAL IJ (09:28)
[2020-07-01] MEDS: Bupivacaine 0.25% Pres-Free 30 ML VIAL (09:28)
[2020-07-01] MEDS: Lidocaine 1% Multi-Dose 50 ML VIAL (09:43)
[2020-07-01] MEDS: oxyCODONE 5 MG TAB PO (12:17)
== END 2020-07-01 13:59 | disposition home or self-care (01) ==
LOC: SUR 08:30
PROVIDERS: PCP Family Medicine; Visit Provider Surgery
PROC: (CPT 49520; principal; 2020-07-01 09:30)
DX: K40.91 Unilateral inguinal hernia, without obstruction or gangrene, recurrent (principal); G47.30 Sleep apnea, unspecified; F41.9 Anxiety disorder, unspecified
CPT/HCPCS: 49520; 76942; C1781; J0690; J1100; J1885; J2250; J2405; J2704